=== PATIENT | male | born 1980 | race Caucasian/White ===

== ENCOUNTER 2021-05-24 01:37 | Emergency (ER) | payer OTHER ==
[~2021-05-24] VITALS: Ht 172.7 cm; Wt 79.4 kg
[2021-05-24] MEDS ORDERED: SODIUM BICARBONATE 4.2 % (NEUT) 5 ML VIAL TP ONE (02:15)
[2021-05-24] MEDS ORDERED: LIDOCAINE 1%-EPI 1:100,000 20 ML VIAL IJ ONE (02:15)
[2021-05-24] MEDS ORDERED: SULFAMETH/TRIMETH 800/160 MG TABLET PO ONE (02:15)
[2021-05-24] MEDS ORDERED: CEFTRIAXONE 1 G VIAL ONE (02:34)
[2021-05-24] MEDS ORDERED: LIDOCAINE HCL 1% 20 ML VIAL ONE (02:36)
[2021-05-24] MEDS ORDERED: SULF1TAB48 PO (02:37)
[2021-05-24] MEDS ORDERED: HYDR-4209 PO (02:37)
[2021-05-24] MEDS ORDERED: CEPH500T PO (02:37)
[2021-05-24] MEDS ORDERED: SULFAMETH/TRIMETH 800/160 MG TABLET ONE (02:38)
[2021-05-24] MEDS: CEFTRIAXONE 1 G VIAL IM ONE ×2 (02:46→02:47)
--- NOTE | 2021-05-24 03:02 | NUR ---
Patient discharged to home in stable condition. Written and verbal after care instructions given. Patient verbalizes understanding of instructions. Stressed follow up or return to ER for worsening s/s.
== END 2021-05-24 03:05 | disposition home or self-care (01) ==
LOC: ER 01:45
DX: H60.01 Abscess of right external ear (principal); Z71.6 Tobacco abuse counseling; F17.210 Nicotine dependence, cigarettes, uncomplicated; Z79.899 Other long term (current) drug therapy
CPT/HCPCS: 10060; 96372; 99283; 99406; J0696; J3490 ×2; A4663

== ENCOUNTER 2021-05-26 09:41 | Emergency (ER) | payer OTHER ==
[~2021-05-26] VITALS: Ht 172.7 cm; Wt 79.4 kg
[~2021-05-26 09:41] MED LIST: CEPH500T PO; HYDR-4209 PO; SULF1TAB48 PO
--- NOTE | 2021-05-26 10:26 | NUR ---
PT SEEN AND EVALUATED BY DR MANCIA
[2021-05-26] MEDS ORDERED: NEOMY/BACITRA/POLYMYXIN B OINT UD PACKET TP ONE ×2 (10:30→10:47)
== END 2021-05-26 10:43 | disposition home or self-care (01) ==
LOC: ER 09:41
DX: Z48.817 Encounter for surgical aftercare following surgery on the skin and subcutaneous tissue (principal); F17.210 Nicotine dependence, cigarettes, uncomplicated
CPT/HCPCS: A4663